=== PATIENT | male | born 1980 | race Caucasian/White ===

== ENCOUNTER 2016-09-30 22:51 | Emergency (ER) | payer OTHER ==
[~2016-09-30] VITALS: Ht 193 cm; Wt 172.4 kg
[~2016-09-30 22:51] MED LIST: AMLO10TA4 PO; CLON0.1T14 PO; LOSA100T3 PO
--- NOTE | 2016-09-30 23:05 | NUR ---
To bed 7 a 35 yo male bibself with c/o of fever at home and nausea with vomiting one time about 6 hrs ago, took tyl 4 hours [employer]. Patient is aaox4, ambulatory with steady gait. vss. initiated comfort measures. awaiting for er md rashid.
[2016-09-30] MEDS ORDERED: ONDANSETRON 4 MG TAB.RAPDIS ONE (23:10)
[2016-09-30] MEDS ORDERED: IBUPROFEN 400 MG TABLET ONE (23:10)
[2016-09-30] MEDS: IBUPROFEN 400 MG TABLET PO ONE (23:19)
[2016-09-30] MEDS: ONDANSETRON 4 MG TAB.RAPDIS SL ONE (23:19)
--- NOTE | 2016-09-30 23:19 | NUR ---
medicated as ordered by Dr Serrano.
--- NOTE | 2016-09-30 23:19 | NUR ---
flu swab done. called lab for cone picker.
--- NOTE | 2016-10-01 00:04 | NUR ---
Patient discharged to home in stable condition. Written and verbal after care instructions given. Patient verbalizes understanding of instruction. Patient is ambulatory with steady gait, accompanied by family. no further complaints.
[2016-10-01 00:06] VITALS: BP 150/80
== END 2016-10-01 00:07 | disposition home or self-care (01) ==
LOC: ER 22:51
DX: J06.9 Acute upper respiratory infection, unspecified (principal); E78.1 Pure hyperglyceridemia; F32.9 Major depressive disorder, single episode, unspecified; F41.9 Anxiety disorder, unspecified; I10 Essential (primary) hypertension; J45.909 Unspecified asthma, uncomplicated; Z88.0 Allergy status to penicillin
CPT/HCPCS: 87400; A4606; Q0162; Z7610

== ENCOUNTER 2016-10-19 16:12 | Emergency (ER) | payer OTHER ==
[~2016-10-19] VITALS: Ht 193 cm; Wt 170.1 kg
--- NOTE | 2016-10-19 16:32 | NUR ---
CALLED RT FOR BREATHING TREATMENT
[2016-10-19] MEDS ORDERED: predniSONE 20 MG TABLET ONE (16:34)
[2016-10-19] MEDS ORDERED: ALBUTEROL FS 2.5 MG/3 ML VIAL.NEB ONE (16:37)
[2016-10-19] MEDS ORDERED: IPRATROPIUM NEB FS 0.5 MG/2.5 ML AMPUL.NEB ONE (16:38)
--- NOTE | 2016-10-19 16:41 | NUR ---
bib self from home for sob due to asthma exacerbation, no other medical complaints, respiratory inhaler is not relieving any symptoms, will be seen by md at bedside, respiratory therapy at bedside, nad noted upon discharge.
[2016-10-19] MEDS ORDERED: ALBUTEROL FS 2.5 MG/3 ML VIAL.NEB NEB ONE (17:00)
[2016-10-19] MEDS ORDERED: predniSONE 20 MG TABLET PO ONE (17:00)
[2016-10-19] MEDS ORDERED: IPRATROPIUM NEB FS 0.5 MG/2.5 ML AMPUL.NEB NEB ONE (17:00)
[2016-10-19 18:07] VITALS: BP 134/84
== END 2016-10-19 18:08 | disposition home or self-care (01) ==
LOC: ER 16:13
DX: J45.901 Unspecified asthma with (acute) exacerbation (principal); F41.9 Anxiety disorder, unspecified; F32.9 Major depressive disorder, single episode, unspecified; I10 Essential (primary) hypertension; Z88.0 Allergy status to penicillin
CPT/HCPCS: 94640 ×2; 99284; A4606; A6402; J7512; Z7610

== ENCOUNTER 2016-10-21 14:14 | Emergency (ER) | payer OTHER ==
[~2016-10-21] VITALS: Ht 193 cm; Wt 167.8 kg
--- NOTE | 2016-10-21 14:20 | NUR ---
PT CAME IN FOR COUGH AND SOB X COUPLE OF DAYS. PER PT HE HAS TAKEN OTC MEDS WITH NO RELIEF. VSS. NAD NOTED. SEEN BY MD FOR EVAL. SAFETY AND COMFORT MEASURES PROVIDED. WILL MONITOR.
--- NOTE | 2016-10-21 14:45 | NUR ---
IV ACCESS STARTED. PT MEDICATED ORDERED.
[2016-10-21] MEDS ORDERED: DEXAMETHASONE SOD PHOSPHATE 10 MG/ML VIAL ONE (14:55)
[2016-10-21] MEDS ORDERED: DEXAMETHASONE SOD PHOSPHATE 10 MG/ML VIAL IV ONE (15:00)
[2016-10-21] MEDS ORDERED: BENZONATATE 100 MG CAPSULE PO PRN (15:00)
[2016-10-21] MEDS ORDERED: ALBUTEROL FS 2.5 MG/0.5 ML VIAL.NEB NEB ONE ×2 (15:00→15:30)
[2016-10-21] MEDS ORDERED: IPRATROPIUM NEB FS 0.5 MG/2.5 ML AMPUL.NEB NEB ONE ×2 (15:00→15:30)
[2016-10-21] MEDS ORDERED: ALBUTEROL FS 2.5 MG/3 ML VIAL.NEB ONE ×2 (15:05→15:34)
[2016-10-21] MEDS ORDERED: IPRATROPIUM NEB FS 0.5 MG/2.5 ML AMPUL.NEB ONE ×2 (15:05→15:34)
[2016-10-21] MEDS ORDERED: LEVOFLOXACIN 750 MG /D5W 150ML PIGGYBACK IV ONE (15:30)
[2016-10-21] MEDS ORDERED: LEVOFLOXACIN 750 MG /D5W 150ML 150 ML IV ONE (15:32)
[2016-10-21] MEDS ORDERED: IV SET PRIMARY PUMP SET 1 EA INFUS.SET MC ONE (15:32)
--- NOTE | 2016-10-21 16:46 | NUR ---
IV removed. Catheter intact and site benign. Pressure and 4x4 applied to site. No bleeding noted.
--- NOTE | 2016-10-21 16:46 | NUR ---
Patient discharged to home in stable condition. Written and verbal after care instructions given. Patient verbalizes understanding of instruction.
[2016-10-21 16:47] VITALS: BP 141/88
== END 2016-10-21 16:47 | disposition home or self-care (01) ==
LOC: ER 14:16
DX: J45.901 Unspecified asthma with (acute) exacerbation (principal); E78.1 Pure hyperglyceridemia; F32.9 Major depressive disorder, single episode, unspecified; F41.9 Anxiety disorder, unspecified; I10 Essential (primary) hypertension; Z88.0 Allergy status to penicillin
CPT/HCPCS: 71010; 94640 ×2; 96365; 96375; 99284; A4606; J1100; J1956; Z7610

== ENCOUNTER 2017-08-12 20:22 | Emergency (ER) | payer OTHER ==
[~2017-08-12] VITALS: Ht 175.3 cm; Wt 104.3 kg
[2017-08-12 20:25] VITALS: BP 159/95
== END 2017-08-12 21:22 | disposition home or self-care (01) ==
LOC: ER 20:26
DX: H10.31 Unspecified acute conjunctivitis, right eye (principal); I10 Essential (primary) hypertension; J45.909 Unspecified asthma, uncomplicated; E11.9 Type 2 diabetes mellitus without complications; F41.9 Anxiety disorder, unspecified; F32.9 Major depressive disorder, single episode, unspecified; E78.1 Pure hyperglyceridemia; Z88.0 Allergy status to penicillin
CPT/HCPCS: A4606; Z7610

== ENCOUNTER 2017-09-14 17:18 | Emergency (ER) | payer OTHER ==
[~2017-09-14] VITALS: Ht 193 cm; Wt 190.1 kg
[2017-09-14] MEDS ORDERED: DEXAMETHASONE 1 MG TABLET PO ONE (18:30)
[2017-09-14] MEDS ORDERED: ALBUTEROL FS 2.5 MG/0.5 ML VIAL.NEB NEB ONE (18:30)
[2017-09-14] MEDS ORDERED: DEXAMETHASONE 1 MG TABLET ONE (18:39)
[2017-09-14] MEDS ORDERED: DEXAMETHASONE 4 MG TABLET ONE (18:40)
[2017-09-14] MEDS ORDERED: ALBUTEROL FS 2.5 MG/0.5 ML VIAL.NEB ONE (19:05)
[2017-09-14 19:58] VITALS: BP 157/100
--- NOTE | 2017-09-14 19:59 | NUR ---
Patient discharged to home in stable condition. Written and verbal after care instructions given. Patient verbalizes understanding of instruction. pt ambulatory with a steady gait VITAL SIGNS WITHIN NORMAL LIMITS.
== END 2017-09-14 19:59 | disposition home or self-care (01) ==
LOC: ER 17:22
DX: J45.909 Unspecified asthma, uncomplicated (principal); F41.9 Anxiety disorder, unspecified; F32.9 Major depressive disorder, single episode, unspecified; Z88.0 Allergy status to penicillin
CPT/HCPCS: 71045; 87070; 87880; 94640; 99285; A4606; J8540 ×2; Z7610; 86403-TC

== ENCOUNTER 2017-10-29 16:43 | Emergency (ER) | payer OTHER ==
[~2017-10-29] VITALS: Ht 193 cm; Wt 181.4 kg
[2017-10-29 16:50] VITALS: BP 165/92
== END 2017-10-29 17:30 | disposition home or self-care (01) ==
LOC: ER 16:44
DX: S63.501A Unspecified sprain of right wrist, initial encounter (principal); E66.01 Morbid (severe) obesity due to excess calories; I10 Essential (primary) hypertension; J45.909 Unspecified asthma, uncomplicated; E11.9 Type 2 diabetes mellitus without complications; F41.9 Anxiety disorder, unspecified; F32.9 Major depressive disorder, single episode, unspecified; Z88.0 Allergy status to penicillin; Z79.899 Other long term (current) drug therapy; Z68.42 Body mass index [BMI] 45.0-49.9, adult; W01.0XXA Fall on same level from slipping, tripping and stumbling without subsequent striking against object, initial encounter; Y93.89 Activity, other specified; Y92.89 Other specified places as the place of occurrence of the external cause; Y99.8 Other external cause status
CPT/HCPCS: A4606; Z7610

== ENCOUNTER 2017-12-28 16:54 | Emergency (ER) | payer OTHER ==
[~2017-12-28] VITALS: Ht 193 cm; Wt 190.5 kg
--- NOTE | 2017-12-28 17:00 | NUR ---
PATIENT C/O R ANKLE PAIN/ SWELLING X 5 DAYS. NO TRAUMA. A/OX4. VSS. AWAITING FOR MD JAMES. WILL MONIOTR ACCORDINGLY
[2017-12-28] MEDS ORDERED: KETOROLAC TROMETHAMINE INJ 60 MG/2 ML VIAL IM ONE (17:30)
[2017-12-28] MEDS ORDERED: KETOROLAC TROMETHAMINE INJ 30 MG/ML VIAL ONE (17:35)
--- NOTE | 2017-12-28 17:50 | NUR ---
TORADOL 30MG IM LEFT DELTOID.
[2017-12-28 18:08] VITALS: BP 110/84
== END 2017-12-28 18:09 | disposition home or self-care (01) ==
LOC: ER 16:56
DX: I87.2 Venous insufficiency (chronic) (peripheral) (principal); E66.01 Morbid (severe) obesity due to excess calories; I10 Essential (primary) hypertension; J45.909 Unspecified asthma, uncomplicated; E11.9 Type 2 diabetes mellitus without complications; F41.9 Anxiety disorder, unspecified; F32.9 Major depressive disorder, single episode, unspecified; E78.1 Pure hyperglyceridemia; Z88.0 Allergy status to penicillin; Z79.899 Other long term (current) drug therapy; Z68.43 Body mass index [BMI] 50.0-59.9, adult
CPT/HCPCS: 96372; 99283; A4606; J1885; Z7610

== ENCOUNTER 2018-11-04 18:56 | Emergency (ER) | payer OTHER ==
[~2018-11-04] VITALS: Ht 193 cm; Wt 176.9 kg
[2018-11-04 19:06] VITALS: BP 173/92
--- NOTE | 2018-11-04 19:34 | NUR ---
DONE WITH X. RAY .
--- NOTE | 2018-11-04 20:47 | NUR ---
Patient discharged to home in stable condition. Written and verbal after care instructions given. Patient verbalizes understanding of instruction.
== END 2018-11-04 23:03 | disposition home or self-care (01) ==
LOC: ER 19:10
DX: S50.12XA Contusion of left forearm, initial encounter (principal); S80.02XA Contusion of left knee, initial encounter; I10 Essential (primary) hypertension; E78.5 Hyperlipidemia, unspecified; E11.9 Type 2 diabetes mellitus without complications; J45.909 Unspecified asthma, uncomplicated; F41.9 Anxiety disorder, unspecified; F32.9 Major depressive disorder, single episode, unspecified; Z98.890 Other specified postprocedural states; Z88.0 Allergy status to penicillin; V03.10XA Pedestrian on foot injured in collision with car, pick-up truck or van in traffic accident, initial encounter; Y93.89 Activity, other specified; Y93.H3 Activity, building and construction; Y99.0 Civilian activity done for income or pay
CPT/HCPCS: 73090-TC; 73564-TC

== ENCOUNTER 2018-12-14 18:34 | Emergency (ER) | payer OTHER ==
[~2018-12-14] VITALS: Ht 193 cm; Wt 186.0 kg
[2018-12-14 18:34] VITALS: BP 163/104
[2018-12-14] MEDS ORDERED: oxyCODONE/APAP (5/325 MG) 1 UDTAB TABLET PO ONE (19:30)
[2018-12-14] MEDS ORDERED: IBUPROFEN 400 MG TABLET PO ONE (19:30)
[2018-12-14] MEDS ORDERED: oxyCODONE/APAP (5/325 MG) 1 UDTAB TABLET ONE (19:36)
[2018-12-14] MEDS ORDERED: IBUPROFEN 400 MG TABLET ONE (19:37)
== END 2018-12-14 20:26 | disposition home or self-care (01) ==
LOC: ER 18:35
DX: S93.492A Sprain of other ligament of left ankle, initial encounter (principal); R00.0 Tachycardia, unspecified; E11.9 Type 2 diabetes mellitus without complications; J45.909 Unspecified asthma, uncomplicated; E66.01 Morbid (severe) obesity due to excess calories; I10 Essential (primary) hypertension; F41.9 Anxiety disorder, unspecified; F32.9 Major depressive disorder, single episode, unspecified; Z98.890 Other specified postprocedural states; Z88.0 Allergy status to penicillin; X58.XXXA Exposure to other specified factors, initial encounter; Y93.89 Activity, other specified; Y92.89 Other specified places as the place of occurrence of the external cause; Y99.8 Other external cause status
CPT/HCPCS: 73610-TC